=== PATIENT | female | born 1990 | race Caucasian/White ===

== ENCOUNTER 2016-07-01 11:18 | Emergency (ER) | payer OTHER ==
[2016-07-01 12:24] VITALS: BP 122/82
--- NOTE | 2016-07-01 12:37 | UC ---
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 NO NUMBNESS OR HER RIGHT UPPER EXT. - History of Current Complaint Chief Complaint: UCBackPain Stated Complaint: NECK PAIN W/C Time Seen by Provider: 07/01/16 12:14 Hx Obtained From: Patient Hx Last Menstrual Period: 06/21/16 ?: No Mechanism Of Injury: No Known Trauma Timing: Constant Onset/Duration: Gradual Onset, Lasting Days - 1, Still Present Severity: Moderate Location: Discrete At: - RIGHT SIDE OF NECK Character: Aching, Stiff, Spasmotic Aggravating Factors: Position, Movement Alleviating Factors: Nothing Associated Signs & Symptoms: Positive: Swelling. Negative: Redness, Bruising, Fever, Nuchal Rigity, Weakness, Headache, Paresthesia - Allergies/Home Medications Allergies/Adverse Reactions: Allergies Allergy/AdvReac Type Severity Reaction Status Date / Time Hydrocortisone Allergy Rash Verified 07/01/16 12:24 [From Cortisporin] Neomycin [From Cortisporin] Allergy Rash Verified 07/01/16 12:24 Polymyxin B Allergy Rash Verified 07/01/16 12:24 [From Cortisporin] Raspberry Allergy Hives Verified 07/01/16 12:24 Home Medications: Home Medications Aspirin [Nallely Aspirin] 650 mg PO Q6HR PRN 07/01/16 [History Confirmed 07/01/16] PMH/Surg Hx/FS Hx/Imm Hx Respiratory History Of: Reports: Asthma - Surgical History Surgical History: Yes Surgery Procedure, Year, and Place: LEFT ANKLE SX - Family History Known Family History: Negative: Diabetes - Social History Alcohol Use: None Substance Use Type: None Smoking Status (MU): Never Smoked Tobacco Review Of Systems Constitutional: Positive: Negative Skin: Positive: Negative Eyes: Positive: Negative ENT: Positive: Negative Respiratory: Positive: Negative Cardiovascular: Positive: Negative All Other Systems Reviewed And Are Negative: Yes Physical Exam Triage Information Reviewed: Yes Appearance: Well-Appearing, Well-Nourished, Pain Distress Vital Signs: Initial Vital Signs Temp 98.2 F 07/01/16 12:16 Pulse 60 07/01/16 12:16 Resp 18 07/01/16 12:16 BP 122/82 07/01/16 12:16 Pulse Ox 100 07/01/16 12:16 Vital Signs Reviewed: Yes Eyes: Positive: Conjunctiva Clear ENT: Positive: Normal ENT inspection, Hearing grossly normal, Pharynx normal Neck exam: Normal Neck: Positive: Supple, No Lymphadenopathy, Tenderness @ - RIGHT SIDE , + MUSCKE SPASM, Other: - LIMITED ROM ON ROTATION TO RIGHT. Negative: Nuchal Rigidity Respiratory: Positive: Chest non-tender, Lungs clear, Normal breath sounds Cardiovascular: Positive: RRR, No Murmur, Pulses Normal Neck Pain Course/Dx - Differential Dx/Diagnosis Provider Diagnoses: NECK STRAIN Discharge - Discharge Plan Condition: Stable Disposition: HOME Prescriptions: Cyclobenzaprine TAB* [Flexeril TAB*] 10 mg PO BID #20 tab Naproxen [Naproxen 500 MG TABS] 500 mg PO BID #20 tab Patient Education Materials: Neck Pain (ED) Forms: *Work Release Referrals: Sarah Crenshaw MD [Primary Care Provider] - 7 Days
== END 2016-07-01 13:03 | disposition home or self-care (01) ==
LOC: UCCORT 11:18
DX: S16.1XXA Strain of muscle, fascia and tendon at neck level, initial encounter (principal); Z88.8 Allergy status to other drugs, medicaments and biological substances; X58.XXXA Exposure to other specified factors, initial encounter; Y93.F2 Activity, caregiving, lifting; Y92.9 Unspecified place or not applicable; Y99.0 Civilian activity done for income or pay
CPT/HCPCS: 99212; G0463